=== PATIENT | female | born 1970 ===

== ENCOUNTER 2017-09-05 07:09 | Day surgery (SDC) | payer BC ==
[2017-09-05] MEDS ORDERED: Lactated Ringer's 1,000 ML IV ONE (08:00)
[2017-09-05] MEDS ORDERED: Nitroglycerin 2% 15 INCH/30 GM TUBE TOP STA (08:37)
--- NOTE | 2017-09-05 08:37 | CP.SDSHP ---
Same Day Surgery H & P - History Proposed Procedure: Bilateral Uterine Artery Embolization Pre-Op Diagnosis: Symptomatic uterine fibroids - Allergies Allergies: Allergies No Known Allergies Allergy (Verified 08/28/17 10:47) - Physical Exam Vital Signs: Vital Signs 09/05/17 07:20 Temperature 98.4 F Pulse Rate 84 Respiratory 20 Rate Blood Pressure 147/60 O2 Sat by Pulse 98 Oximetry - Impression Impression: 47 year old female with symptomatic uterine fibroids; plan bilateral uterine artery embolization - Date & Time Date: 09/05/17 Time: 08:45 Short Stay Discharge - Short Stay Discharge Admitting Diagnosis/Reason for Visit: D25.9 Disposition: HOME/ ROUTINE Referrals: FAMILY PROVIDER,NO [Primary Care Provider] -
[2017-09-05] MEDS ORDERED: Iodixanol 320 MG/ML 100 ML BOTTLE IV ONE ×4 (08:41→12:33)
[2017-09-05] MEDS ORDERED: Lidocaine/Prilocaine CREAM 5GM TP ONE ×2 (08:44→08:53)
[2017-09-05] MEDS ORDERED: LIDOCAINE 2% 10ML 20 MG/ML VIAL IJ ONE (08:54)
[2017-09-05] MEDS ORDERED: Nitroglycerin 2% Ointment Foilpak UD TOP ONE (08:54)
[2017-09-05] MEDS ORDERED: Midazolam 2 MG/2 ML VIAL ONE (08:59)
[2017-09-05] MEDS ORDERED: [UNRECOGNIZED DRUG - OTHER] IV ONE (09:00)
[2017-09-05] MEDS ORDERED: HEPARIN IV ONE (09:00)
[2017-09-05] MEDS ORDERED: VERAPAMIL IV ONE (09:00)
[2017-09-05] MEDS ORDERED: NITROGLYCERIN IV ONE (09:00)
[2017-09-05] MEDS ORDERED: Propofol 10 mg/ml Inj (20 ML) ONE (09:02)
[2017-09-05] MEDS ORDERED: Chlorhexidine Gluconate 1 APPL/PKT TP ONE (09:32)
[2017-09-05] MEDS ORDERED: HYDROmorphone 0.5 mg/0.5 ml ISec ONE (13:22)
[2017-09-05] MEDS: HYDROmorphone 0.5 mg/0.5 ml ISec IVP PRN ×3 (13:30→14:15)
[2017-09-05] MEDS ORDERED: Lactated Ringer's 1,000 ML IV SCH (13:30)
--- NOTE | 2017-09-05 13:48 | PCM.SURG1 ---
Surgeon's Initial Post Op Note - Surgeon's Notes Surgeon: Leonel German MD Grain Elevator Agent: None Type of Anesthesia: MAC Pre-Operative Diagnosis: symptomatic uterine fibroids Operative Findings: hypertrophied bilateral uterine arteries supplying enlarged fibroid uterus Post-Operative Diagnosis: same Operation Performed: bilateral uterine artery embolization Specimen/Specimens Removed: n/a Estimated Blood Loss: EBL {In ML}: 30 Date of Surgery/Procedure: 09/05/17 Time of Surgery/Procedure: 09:30
[2017-09-05 15:25] VITALS: O2SAT 98
[2017-09-05] MEDS ORDERED: Acetaminophen IV 1,000 MG in IV SUPPLIES 0 ML IVPB ONE (15:45)
[2017-09-05] MEDS ORDERED: Acetaminophen IV IVPB ONE (15:45)
[2017-09-05 16:52] VITALS: RESP 18
[2017-09-05 16:53] VITALS: BP 135/67; PULSE 76; TEMP 97.6
--- NOTE | 2017-09-05 16:58 | PCM.IRP ---
Chief Complaint: called from [facility], patient left hand is cold and not registering O2 saturation on pulse oximetry. Patient evaluated at bedside, left hand and forearm cold. Left radial and ulnar artery pulses not palpable. Brachial artery palpable. POCUS demonstrated thrombosis of ulnar and radial arteries, but patent brachial artery. No left hand pain or tingling. Full ROM. Objective - Vital Signs/Intake and Output Vital Signs (last 24 hours): Vital Signs - 24 hr 09/05/17 09/05/17 09/05/17 07:20 09:00 09:38 Temperature 98.4 F 98.4 F Pulse Rate 84 80 80 Respiratory 20 18 Rate Blood Pressure 147/60 132/70 O2 Sat by Pulse 98 99 Oximetry 09/05/17 09/05/17 09/05/17 13:15 13:30 13:45 Temperature 97.4 F L Pulse Rate 78 69 65 Respiratory 18 18 18 Rate Blood Pressure 136/68 111/65 109/53 L O2 Sat by Pulse 97 99 99 Oximetry 09/05/17 09/05/17 09/05/17 14:00 14:15 14:30 Temperature Pulse Rate 67 66 65 Respiratory 18 18 18 Rate Blood Pressure 110/56 L 114/53 L 112/57 L O2 Sat by Pulse 99 99 98 Oximetry 09/05/17 09/05/17 09/05/17 14:45 15:00 16:00 Temperature 97.9 F 97.8 F Pulse Rate 63 86 78 Respiratory 18 20 18 Rate Blood Pressure 110/68 124/63 128/76 O2 Sat by Pulse 99 98 Oximetry 09/05/17 16:51 Temperature 97.6 F Pulse Rate 76 Respiratory 18 Rate Blood Pressure 135/67 O2 Sat by Pulse Oximetry Intake and Output (last 12 hours): Intake & Output 09/04/17 09/05/17 09/05/17 18:59 06:59 18:59 Intake Total 200 Balance 200 Weight 106 lb Intake: IV 200 Other: Voiding Method Toilet - Medications Medications: Current Medications Lactated Ringer's (Lactated Ringer's) 1,000 mls @ 100 mls/hr IV .Q10H NADINE Last Admin: 09/05/17 15:00 Dose: 200 mls - Labs Labs (last 24 hours): Laboratory Results - last 24 hr 09/05/17 09/05/17 09/05/17 07:40 08:24 08:30 POC Glucose (mg/dL) 154 H Blood Type A POSITIVE Blood Type Confirm A POSITIVE Antibody Screen Negative BBK History Checked No verified bt 09/05/17 14:49 POC Glucose (mg/dL) 214 H Blood Type Blood Type Confirm Antibody Screen BBK History Checked Assessment/Plan - Assessment and Plan (Free Text) Plan: Plan: -Pt sent to ER to be admitted overnight -Official LUE duplex arterial ultrasound ordered -warm compresses to ventral left forearm (continuous) -heparin gtt -re evaluate tomorrow with pulse checks and repeat duplex ultrasound PRN
[2017-09-05] MEDS ORDERED: Heparin 25,000units in D5W 25,000 UNITS/250 ML BAG IV SCH (17:30)
== END 2017-09-05 17:25 | disposition still patient (30) ==
LOC: H.OPSURG 07:09
PROVIDERS: ATTEND Radiology Vascular & Interventional Radiology
DX: D25.9 Leiomyoma of uterus, unspecified (principal); E11.9 Type 2 diabetes mellitus without complications; E78.5 Hyperlipidemia, unspecified; I10 Essential (primary) hypertension; E66.9 Obesity, unspecified; D64.9 Anemia, unspecified
CPT/HCPCS: 36415; 37243; 82948; 86850; 86900; C1769; C1887; C9113; J0131; J0690; J1100; J1170; J1644; J1885; J2001; J2250; J2405; J2704; J3010; J7120; Q9967

== ENCOUNTER 2017-09-05 17:38 | Emergency (ER) | payer BC ==
[2017-09-05] MEDS ORDERED: Heparin 25,000units in D5W 25,000 UNITS/250 ML BAG IV SCH (18:15)
--- NOTE | 2017-09-05 18:29 | ED PDOC ---
Upper Extremity Pain/Injury Time Seen by Provider: 09/05/17 17:58 Chief Complaint (Nursing): Upper Extremity Problem/Injury History Per: Other Onset/Duration Of Symptoms: Hrs (2) Current Symptoms Are (Timing): Still Present Additional Complaint(s): Referred from [facility], pt underwent uterine fibroid embolization via left radial artery. IR was called due to coolness left hand and left forearm. POCUS revealed occlusion left radial and ulnar artery. Referred for initiation of IV heparin. Past Medical History Vital Signs: Last Vital Signs Temp 98.4 F 09/05/17 17:48 Pulse 67 09/05/17 17:48 Resp 19 09/05/17 17:48 BP 136/57 L 09/05/17 17:48 Pulse Ox 98 09/05/17 17:48 - Medical History PMH: Anemia, HTN, Hypercholesterolemia, TIA (October 2016) - Surgical History Surgical History: Appendectomy, Cholecystectomy - Family History Family History: States: Unknown Family Hx - Immunization History Hx Tetanus Toxoid Vaccination: No Hx Influenza Vaccination: Yes Hx Pneumococcal Vaccination: No - Home Medications Home Medications: Ambulatory Orders Medication Instructions Recorded Aspirin [Adult Aspirin] 81 mg PO DAILY 08/28/17 Atorvastatin [Lipitor] 80 mg PO HS 08/28/17 Cilostazol [Pletal] 100 mg PO Q12 08/28/17 Ferrous Sulfate [Feosol] 325 mg PO Q12 08/28/17 Furosemide [Lasix] 40 mg PO DAILY 08/28/17 Metoprolol Succinate [Toprol Xl] 50 mg PO DAILY 08/28/17 Pioglitazone [Actos] 30 mg PO DAILY 08/28/17 Ramipril [Altace] 10 mg PO DAILY 08/28/17 metFORMIN [glucOPHAGE] 500 mg PO BID 08/28/17 Docusate [Colace] 100 mg PO DAILY 09/05/17 Ergocalciferol (Vitamin D2) 50,000 unit PO MO 09/05/17 [Vitamin D2] GlipiZIDE [Glucotrol] 10 mg PO DAILY 09/05/17 - Allergies Allergies/Adverse Reactions: Allergies Allergy/AdvReac Type Severity Reaction Status Date / Time No Known Allergies Allergy Verified 09/05/17 17:48 Review of Systems ROS Statement: Except As Marked, All Systems Reviewed And Found Negative Musculoskeletal: Positive for: Other (Left hand cool and no radial/ulnar pulse) Physical Exam - Physical Exam Appears: Positive for: Non-toxic, No Acute Distress Cardiovascular/Chest: Positive for: Regular Rate, Rhythm Respiratory: Positive for: CNT, Normal Breath Sounds Pulses-Radial (L): 0 Pulses-Radial (R): 2+ Gastrointestinal/Abdominal: Positive for: Soft. Negative for: Tenderness Extremity: Positive for: Other (Left hand cool slightly pale. cap refill 3 sec) - Laboratory Results Result Diagrams: 09/05/17 18:30 09/05/17 18:30 - ECG O2 Sat by Pulse Oximetry: 98 Medical Decision Making Medical Decision Making: Case discussed with hospitalist Dr. Haile, does not feel comfortable admitting pt to [facility] as their is no vascular surgeon available should surgical intervention become necessary. Call placed to vascular surgeon Dr. Tamayo, states that he is not available and not on service for vascular surgery at [facility]. Call placed to [facility] transfer center but no call back from vascular surgeon supervisor carbon paper coating. Left hand reassessed remains cool but not mottled or cyanotic. Radial and ulnar pulses not palpable. Motor intact with no sensory deficits. Arterial doppler performed left upper extremity. Radial artery completely occluded, ulnar artery partially occluded. Brachial and axillary arteries patent. Pt remains on heparin drip, nitroglycerin drip and PO ASA. Pt c/o pain left hand, medicated with IV Morphine Case discussed with IR Dr. Dean. After reviewing doppler studies, he feels that pt will require embolectomy and needs vascular surgeon as he feels that this cannot be done by IR at [facility]. Transfer center at [facility] contacted. Vascular surgeon, Dr. Hurtado willing to accept transfer. Transfer to [place] discussed with patient who refuses transfer to [place] as this would be inconvenient for her and her family. Need for vascular surgeon discussed with pateint as well as risk of avascular hand and amputation of hand. Patient states that she has a nutrition partner at [facility], requesting transfer to [facility]. Left hand reassessed, remains cool but not cyanotic or mottled. Radial and ulnar pulses remain absent. No motor or sensory deficit. No change from previous assessment Call placed to patient's nutrition partner at [facility], covering physician responded. After discussion with physician he stated that he will contact transfer center and will make arrangements for transfer to [facility] with vascular surgeon to see patient there. Discussed with patient who is agreeable to transfer to [facility]. Left hand reassessed, Hand remains cool but not mottled or cyanotic. Radial and ulnar pulses remain absent. No motor or sensory deficits. Pt remains on IV heparin, nitroglycerin Disposition - Clinical Impression Clinical Impression: Arterial occlusion - Patient ED Disposition Is Patient to be Admitted: Transfer of Care - Disposition Disposition: Transfer of Care Disposition Time: 23:30 Condition: FAIR Forms: [employer] (Slovenian) Patient Signed Over To: Major Begum
[2017-09-05 18:51] LABS: BASO % 0.1 % (0.0-2.0); HEMOGLOBIN 7.4 g/dL (12.0-16.0); LYMPH # 0.5 K/uL (1.0-4.3); LYMPH % 3.2 % (20.0-40.0); MEAN CELL VOLUME 69.3 fl (81.0-99.0); MEAN CORPUSCULAR HEMOGLOBIN 20.7 pg (27.0-31.0); MEAN CORPUSCULAR HGB CONC 29.9 g/dL (33.0-37.0); MEAN PLATELET VOLUME 9.1 fl (7.2-11.7); MONO # 0.1 K/uL (0.0-0.8); MONO % 0.7 % (0.0-10.0); NEUT # 16.1 K/uL (1.8-7.0); PLATELET COUNT 276 K/uL (130-400); RBC 3.57 Mil/uL (3.80-5.20); RED CELL DISTRIBUTION WIDTH 20.2 % (11.5-14.5); WHITE BLOOD COUNT 16.7 K/uL (4.8-10.8)
[2017-09-05 19:01] LABS: INR 1.1 (0.9-1.2); PROTHROMBIN TIME 12.7 Seconds (9.8-13.1)
[2017-09-05] MEDS ORDERED: Heparin 25,000units in D5W 25,000 UNITS/250 ML BAG IV ONE (19:04)
[2017-09-05 19:07] LABS: ALB/GLOB RATIO 1.1 (1.0-2.1); ALBUMIN 3.8 g/dL (3.5-5.0); ALT/SGPT 25 U/L (9-52); AST/SGOT 22 U/L (14-36); BLOOD UREA NITROGEN 16 mg/dl (7-17); CALCIUM 8.7 mg/dL (8.4-10.2); GFR AFRICAN-AMERICAN > 60; GFR NON-AFRICAN AMERICAN > 60
[2017-09-05] MEDS ORDERED: Nitroglycerin 50mg in D5W 50 MG/250 ML BOTTLE IV ONE ×2 (20:51→21:02)
--- NOTE | 2017-09-05 21:33 | US ---
EXAM: US Duplex Left Upper Extremity Arteries EXAM DATE/TIME: 09/05/2017 6:58 PM CLINICAL HISTORY: 47 years old, female; Pain and signs and symptoms; Other: Left ulnar/radial absent pulse. ; Arm; Additional info: Absent left radial and ulnar pulse TECHNIQUE: Real-time duplex ultrasound scan of the left upper extremity arteries integrating B-mode two-dimensional vascular structure, Doppler spectral analysis and color flow Doppler imaging. COMPARISON: No relevant prior studies available. FINDINGS: There is flow in the left common carotid artery, with a peak systolic velocity of 99 cm/s. There is flow in the left subclavian artery, with a peak systolic velocity of 137 cm/s. There is flow in the left axillary artery, with a peak systolic velocity of 92 cm/s. There is flow in the left brachial artery, with a peak systolic velocity of 122 cm/s. There is no significant detectable flow throughout the left radial artery, highly suspicious for occlusion. There is flow in the proximal aspect of the left ulnar artery, with a peak systolic velocity of 29 cm/s. There is diminished to absent flow in the mid and distal portions of the left ulnar artery, highly suspicious for occlusion. IMPRESSION: Findings highly suspicious for complete occlusion of the left radial artery. Findings highly suspicious for partial occlusion of the left ulnar artery, involving the mid and distal portions. See above for remaining findings.
[2017-09-05 22:18] LABS: ANISOCYTOSIS MODERATE; BANDS 3 % (0-2); LYMPHOCYTE 6 % (20-50); MONOCYTE 3 % (0-10); NEUTROPHIL 88 % (42-75); PLATELET ESTIMATE NORMAL (NORMAL); POIKILOCYTOSIS SLIGHT; TOTAL CELLS COUNTED 100
[2017-09-05 22:19] LABS: HYPOCHROMIC MODERATE; MICROCYTOSIS MODERATE; OVALOCYTES SLIGHT; TEARDROP CELLS SLIGHT
--- NOTE | 2017-09-05 22:51 | RAD ---
EXAM: XR Chest, 1 View EXAM DATE/TIME: 09/05/2017 6:08 PM CLINICAL HISTORY: 47 years old, female; Signs and symptoms; Cough; Symptoms not specified TECHNIQUE: Frontal view of the chest. COMPARISON: No relevant prior studies available. FINDINGS: LIMITATIONS: Exam is somewhat limited by the patient's body habitus. LUNGS: Hazy density projected over the lateral aspects of the lung bases bilaterally, symmetric in appearance, felt to be related to overlying soft tissues. No definite focal consolidation/infiltrate is seen in the lungs. No evidence of diffuse pulmonary vascular congestion. PLEURAL SPACE: No pneumothorax or pleural effusions seen. HEART: Heart appears moderately enlarged. MEDIASTINUM: Mediastinal contour is within normal limits. BONES/JOINTS: No acute bony abnormality visualized. IMPRESSION: - Cardiomegaly. - Lungs and pleural spaces appear grossly clear. - See above for remaining findings.
[2017-09-06 04:20] VITALS: BP 151/55; PULSE 75; RESP 16; TEMP 98.1
[2017-09-06 12:19] VITALS: O2SAT 98
== END 2017-09-06 03:00 | disposition short-term general hospital (02) ==
LOC: H.ER 17:38
DX: I74.2 Embolism and thrombosis of arteries of the upper extremities (principal); E78.00 Pure hypercholesterolemia, unspecified; I10 Essential (primary) hypertension; Z79.82 Long term (current) use of aspirin; Z79.84 Long term (current) use of oral hypoglycemic drugs; Z86.73 Personal history of transient ischemic attack (TIA), and cerebral infarction without residual deficits
CPT/HCPCS: 71045; 80053; 82948; 83615; 85025; 85610; 85730; 93931; 96365; 96366; 96375; 96376; 99284; J1644; J2270; J2405; J2765